=== PATIENT | male | born 1950 | race Caucasian/White ===

== ENCOUNTER → 2016-12-28 | Outpatient (CLI) | payer OTHER | DX: M79.605 Pain in left leg (principal) ==

== ENCOUNTER → 2021-03-23 | Outpatient (CLI) | payer OTHER ==
[~2021-03-23] MED LIST: ASPIRIN EC325 MG PO; BAYER CHEWABLE81 MG PO; BRILINTA90 MG PO; CENTRUM SILVER1 EAC1 PO; COREG 3.125M3.125 MG PO; COZAAR50 MG PO; CRESTOR20 MG PO; CRESTOR40 MG PO; DAILY MULTIPLE1 EAC1 PO; ENDOCET 7.5-321 EACH PO; ISOSORBIDE MONO30 MG PO; LEVOTHYROXINE150 MC1 PO; METOPROLOL TART25 MG PO; NITROSTAT0.4 MG SL; PROTONIX40 MG PO; SYNTHROID175 MCG PO; VITAMIN D PO; VOLTAREN EC 5050 MG PO
== END ==
LOC: ECHO 11:00
DX: I25.10 Atherosclerotic heart disease of native coronary artery without angina pectoris (principal); I08.3 Combined rheumatic disorders of mitral, aortic and tricuspid valves
CPT/HCPCS: ECHO; 93306

== ENCOUNTER → 2021-04-08 | Outpatient (CLI) | payer OTHER ==
[2021-04-08 09:31] LABS: HEMOGLOBIN 12.9 gm/dl (14.0-17.5); RED BLOOD COUNT 4.31 M/UL (4.20-5.50)
[2021-04-08 09:55] LABS: BUN/CREATININE RATIO 35 (0-10)
== END ==
LOC: OPSV2 08:39 → EDSTATUS 11:30
PROVIDERS: Orthopaedic Surgery
DX: Z01.818 Encounter for other preprocedural examination (principal); M17.12 Unilateral primary osteoarthritis, left knee; R94.31 Abnormal electrocardiogram [ECG] [EKG]
CPT/HCPCS: 36415; 71046; 80048; 81001; 83036; 85025; 87081; 93005

== ENCOUNTER → 2021-04-21 | Outpatient (CLI) | payer OTHER ==
[2021-04-21 12:45] LABS: BUN/CREATININE RATIO 24 (0-10)
== END ==
LOC: LAB 10:58
PROVIDERS: Orthopaedic Surgery
DX: Z01.812 Encounter for preprocedural laboratory examination (principal)
CPT/HCPCS: 36415; 80048; 86850; 86900; 86901

== ENCOUNTER 2021-04-22 06:52 | Day surgery (SDC) | payer OTHER ==
[~2021-04-22] VITALS: Ht 170.2 cm; Wt 79.4 kg
[~2021-04-22 06:52] MED LIST changes: -ASPIRIN EC325 MG PO; -ENDOCET 7.5-321 EACH PO
[2021-04-22] MEDS ORDERED: ENDOCET 7.5-321 EACH PO (12:58)
[2021-04-22] MEDS ORDERED: ASPIRIN EC325 MG PO (12:58)
[2021-04-23 02:35] LABS: HEMOGLOBIN 11.4 gm/dl (14.0-17.5); RED BLOOD COUNT 3.87 M/UL (4.20-5.50); WHITE BLOOD COUNT 7.8 K/UL (4.5-11.0)
[2021-04-23 02:54] LABS: BUN/CREATININE RATIO 25 (0-10)
== END 2021-04-23 12:59 | disposition home or self-care (01) ==
LOC: OR 06:52 → M/S 15:42 → OR 04-23 12:59
PROVIDERS: Orthopaedic Surgery
DX: M17.12 Unilateral primary osteoarthritis, left knee (principal); G89.18 Other acute postprocedural pain; I10 Essential (primary) hypertension; K21.9 Gastro-esophageal reflux disease without esophagitis; E78.5 Hyperlipidemia, unspecified; E03.9 Hypothyroidism, unspecified; I25.10 Atherosclerotic heart disease of native coronary artery without angina pectoris; F41.9 Anxiety disorder, unspecified; Z95.5 Presence of coronary angioplasty implant and graft; Z87.891 Personal history of nicotine dependence; Z88.1 Allergy status to other antibiotic agents; Z79.82 Long term (current) use of aspirin; Z79.899 Other long term (current) drug therapy
CPT/HCPCS: 36415; 73560; 80048; 85027; 97116; 97161; 97166; 97530; C1713; C1776; J0690; J1100; J2001; J2250; J2270; J2370; J2704; J2795; J3370; J7120